=== PATIENT | female | born 1945 | race Caucasian/White ===

== ENCOUNTER 2021-02-22 15:47 | Emergency (ER) | payer MEDICARE, SELFPAY ==
--- NOTE | ~2021-02-22 | CT_ITS ---
EXAMINATION: CT ABDOMEN AND PELVIS WITH CONTRAST CLINICAL INFORMATION: diffuse AP, constipation, r.o sbo COMPARISON: None. TECHNIQUE: Multidetector volumetric imaging was performed from the superior aspect of the liver through the pubic symphysis following administration of 85 mL Omnipaque 350 intravenous contrast Sagittal and coronal reformatted images were obtained on the technologist workstation.. This CT examination was performed using dose optimization techniques as appropriate, variously including the following: *Automated exposure control *Adjustment of mA and/or kV according to patient size (this includes techniques or standardized protocols for targeted exams where dose is matched to indication/reason for exam; i.e. extremities or head) *Use of iterative reconstruction technique DLP: 297 mGy-cm FINDINGS: LUNG BASES: Minimal dependent atelectasis LIVER, GALLBLADDER, AND BILIARY TREE: The liver is normal in size, shape, and attenuation. No focal hepatic lesion or biliary ductal dilatation is present. The gallbladder is unremarkable with no evidence of radiopaque gallstones, gallbladder wall thickening, or obvious pericholecystic inflammatory changes. PANCREAS: Mild prominence to the pancreatic duct in the region the pancreatic head measuring up to 0.6 cm with the more proximal pancreatic duct is unremarkable SPLEEN: Normal size. Small spontaneous spleno renal shunt incidentally noted ADRENAL GLANDS: Unremarkable. KIDNEYS AND URETERS: The right kidney is atrophic. No obstructive changes to the contralateral left kidney with a few small nonobstructed intrarenal calculi and tiny cortical low-attenuation cysts. BLADDER: Decompressed but difficult to evaluate due to metallic artifact from left hip prosthesis GASTROINTESTINAL TRACT: Moderate amount of stool within the rectum. Colon is tortuous with scattered colonic diverticulosis. I do not appreciate any colonic wall thickening or pericolonic inflammatory changes to suggest diverticulitis. Normal-appearing appendix in the right lower quadrant. Visualized small bowel unremarkable ABDOMINAL WALL: No significant hernia is appreciated. LYMPHOVASCULAR STRUCTURES: Extensive vascular calcification within the aorta iliac system PELVIC VISCERA: Uterus is deviated to the left and partially obscured by artifact from left hip prosthesis. Endometrial cavity does appear to be dilated measuring up to 1.1 cm in thickness which is abnormal for patient of this age. Correlation with a nonemergent pelvic ultrasound is recommended to evaluate further. OSSEOUS STRUCTURES: Degenerative changes in the spine. Compression deformities at L2 and T12 of indeterminate age. Left hip prosthesis. CT/CT abdomen pelvis w con IMPRESSION: Moderate amount of stool throughout the colon. No obstructive changes seen otherwise. Scattered diverticulosis but no evidence for diverticulitis. Chronic appearing changes as described above. Although the uterus is deviated to the left and partially obscured by metallic artifact, endometrial stripe does appear to be abnormally thickened measuring up to 1.1 cm. Correlation with a nonemergent pelvic ultrasound would be recommended This critical result was discussed with LAYLA Bella at 02/22/2021 8:30 PM and it was ascertained that the content and urgency of the report was understood at the time of direct communication.
[2021-02-22 15:49] VITALS: BP 147/89; PULSE 61; RESP 18; TEMP 36.7; O2SAT 99; BMI 21.9
[2021-02-22 16:38] LABS: MANUAL DIFF FLAG NO
[2021-02-22 16:41] LABS: Basophils Absolute Auto 0.1 X10*3/uL (0.0-0.2); Basophils Percent Auto 0.9 % (0-2); Eosinophils Absolute Auto 0.5 X10*3/uL (0.0-0.4); Eosinophils Percent Auto 4.8 % (0-4); Hematocrit 47.9 % (37-47); Hemoglobin 16.7 g/dl (12.0-16.0); Imm Gran Abs Auto 0.02 X10*3/uL (0.00-0.03); Imm Gran Pct Auto 0.2 % (0.0-0.4); Lymphocytes Absolute Auto 2.5 X10*3/uL (1.2-4.9); Mean Corpuscular HGB Conc 34.9 g/dl (31.0-35.0); Mean Corpuscular Hemoglobin 29.5 pg (27.0-33.0); Mean Corpuscular Volume 84.6 fL (80-98); Mean Platelet Volume 10.2 fL (9.4-12.3); Monocytes Absolute Auto 1.3 X10*3/uL (0.1-1.2); Monocytes Percent Auto 13.6 % (2-11); Neutrophils Absolute Auto 5.5 X10*3/uL (2.0-8.3); Neutrophils Percent Auto 55.5 % (45-73); Platelet Count 284 X10*3/uL (160-400); Red Blood Count 5.66 X10*6/uL (4.20-5.50); Red Cell Distribution Width 14.6 % (11.0-16.0); White Blood Count 9.9 X10*3/uL (4.8-10.8)
[2021-02-22 16:59] LABS: Blood Urea Nitrogen 26 mg/dL (9-16); Calcium 9.1 mg/dL (8.4-10.2); Carbon Dioxide 26 mmol/L (22-29); Chloride 97 mmol/L (96-108); Creatinine Clr Calc Pharmacy 41.5; Estimated Glomerular Filt Rate 58; Glucose Random 108 mg/dL (60-115)
[2021-02-22 17:10] LABS: Anion Gap 11 (12-20); Potassium 2.3 mmol/L (3.3-5.1); Sodium 132 mmol/L (135-145)
--- NOTE | 2021-02-22 17:23 | ECG_ITS ---
Test Reason : LOW K Blood Pressure : / mmHG Vent. Rate : 058 BPM Atrial Rate : 058 BPM P-R Int : 212 ms QRS Dur : 092 ms QT Int : 486 ms P-R-T Axes : 061 009 090 degrees QTc Int : 477 ms Sinus bradycardia with 1st degree A-V block Left ventricular hypertrophy with repolarization abnormality Abnormal ECG When compared with ECG of 30-SEP-2017 15:50, No significant change was found Referred By: Ana Apodaca Electronically Signed By:CAM WORKMAN
--- NOTE | 2021-02-22 17:42 | ED.ABDPAIN ---
HPI - Abdominal Pain General Chief Complaint: Abdominal Pain Stated Complaint: Abdominal pain Time Seen by Provider: 02/22/21 17:16 Source: family Mode of arrival: ambulatory Limitations: altered mental status (Obtained from family due to dementia) History of Present Illness HPI narrative: 75-year-old female with a past medical history of glaucoma, anxiety, depression, dementia here with complaints of generalized abdominal pain with constipation x3 days. Per family the patient has been severely constipated and may have had to manually disimpact her at home. She has had no nausea or vomiting. No fevers or chills or urinary symptoms. Drinking water and ensure. Related Data Home Medications Medication Instructions Recorded Confirmed acetazolamide 1 cap PO BID 02/22/21 02/22/21 bimatoprost [Lumigan] 1 drp OPHTHALMIC-LEFT BEDTIME 02/22/21 02/22/21 brimonidine-timolol [Combigan] 1 drp BID 02/22/21 02/22/21 dorzolamide 1 drp BID 02/22/21 02/22/21 melatonin 1 cap PO BEDTIME 02/22/21 02/22/21 memantine 1 cap PO DAILY 02/22/21 02/22/21 quetiapine 1 tab PO BEDTIME 02/22/21 02/22/21 Allergies Allergy/AdvReac Type Severity Reaction Status Date / Time No Known Allergies Allergy Unverified 07/06/20 19:06 [No Known Allergies*] Review of Systems Review of Systems Yes Unobtainable due to mental status (Limited due to dementia. Obtained from family) Constitutional: Reports no additional constitutional complaints, Denies body ache(s), Denies chills, Denies fever(s), Denies headache(s) and Denies weakness Eyes: Reports no additional eye complaints and Denies change in vision Reports system reviewed and no additional complaints, except as documented, Denies dizziness, Denies headache(s), Denies nasal congestion, Denies nasal discharge and Denies neck pain Cardiovascular: Reports no additional cardiovascular complaints, Denies chest pain, Denies leg edema and Denies dyspnea Respiratory: Reports no additional respiratory complaints, Denies cough and Denies dyspnea Gastrointestinal: Reports no additional gastrointestinal complaints, Reports abdominal pain, Reports constipation, Denies diarrhea, Denies nausea and Denies vomiting Genitourinary: Reports no additional female genitourinary complaints and Denies urinary incontinence Musculoskeletal: Reports no additional musculoskeletal complaints, Denies back pain, Denies arthralgias, Denies joint swelling, Denies neck pain, Denies numbness and Denies tingling Skin/Breast: Reports system reviewed and no additional complaints, except as docu and Denies rash Reports system reviewed and no additional complaints, except as documented, Denies Abnormal speech present, Reports confusion, Denies dizziness, Denies headache(s), Denies numbness, Denies tingling and Denies weakness Psychiatric: Reports confusion Physical Exam Vital Signs: Vital Signs: Last Vital Signs Temp 98.0 F 02/22/21 15:49 Pulse 65 02/22/21 19:58 Resp 12 02/22/21 19:58 BP 136/84 02/22/21 19:58 Pulse Ox 93 02/22/21 19:58 Body Mass Index 21.9 Const: General: cooperative, healthy appearing, comfortable, no acute distress and confusion Orientation/consciousness: confusion Limitations: no limitations HENMT: Head: Yes normal to inspection Ears: hearing grossly normal bilaterally General nose exam: Normal external nose present Face and sinus: Yes normal facial exam Mouth: Normal oral and palatal mucosa present Throat: Yes posterior oropharynx normal Eyes: General: appearance normal, both eyes and all related structures Neck: Neck: Yes normal visual inspection Chest: Chest palpation & inspection: normal inspection of the chest Resp: Effort & Inspection: normal respiratory effort Auscultation: clear to auscultation bilaterally Cardio: Rate: regular rate Rhythm: regular rhythm Peripheral pulses: Peripheral pulses 2+ throughout GI: Inspection: Yes normal to inspection Palpation (GI): Soft to palpation, Tenderness to palpation present (GI) (Mild diffuse tenderness) with no rebound tenderness, no guarding and not rigid Auscultation: normal bowel sounds Back/Spine/Pelvis: Thoracic/Lumbar Spine: thoracic and lumbar spine normal to inspection Skin: General skin exam: no rashes or lesions noted Neuro: General: moves all extremities, normal sensation to monofilament, confusion and Unable to assess gait Cognition (Neuro): abnormal cognition Speech: No Abnormal speech present Gait exam (Neuro): Unable to assess gait Extrem: General: Yes normal to inspection, Yes no pedal edema and Yes no calf tenderness Course Course Course Narrative: 75-year-old female here with generalized abdominal pain with constipation for the last few days. History and exam is limited due to baseline mental status. Will check labs, UA, CT, EKG, covid screen 1829-labs show potassium 2.3. Family denies GI losses. ?acetazolamide as cause. Ordered 60 PO, 20meQ IV. 2039-CT A/P shows Moderate amount of stool throughout the colon. No obstructive changes seen otherwise. Scattered diverticulosis but no evidence for diverticulitis. Chronic appearing changes as described above. Although the uterus is deviated to the left and partially obscured by metallic artifact, endometrial stripe does appear to be abnormally thickened measuring up to 1.1 cm. Correlation with a nonemergent pelvic ultrasound would be recommended Discussed with radiologist who recommended non-emergent pelvic US. Family was informed. Nursing to give enema for stool burden. Labs unremarkable. UA is negative. Call at to Medicine to discuss for admission for hypokalemia. 2100-Discussed with Dr tSack for admission. Requesting repeat K and if improved possible discharge. Sign out to Rosalia CUSTOMER DEVELOPMENT MANAGER pending POC. MDM - Abdominal Pain Medical Records Attestation: I reviewed the patient's medical records. Lab Data Attestation: I reviewed the patient's lab results. Result diagrams: 02/22/21 16:30 02/22/21 16:24 Labs: Lab Results 02/22/21 02/22/21 02/22/21 Range/Units 16:24 16:24 16:30 WBC 9.9 (4.8-10.8) X10*3/uL RBC 5.66 H (4.20-5.50) X10*6/uL Hgb 16.7 H (12.0-16.0) g/dl Hct 47.9 H (37-47) % MCV 84.6 (80-98) fL MCH 29.5 (27.0-33.0) pg MCHC 34.9 (31.0-35.0) g/dl RDW 14.6 (11.0-16.0) % Plt Count 284 (160-400) X10*3/uL MPV 10.2 (9.4-12.3) fL Immature Gran % (Auto) 0.2 (0.0-0.4) % Neut % (Auto) 55.5 (45-73) % Lymph % (Auto) 25.0 (20-40) % [place] % (Auto) 13.6 H (2-11) % Eos % (Auto) 4.8 H (0-4) % Baso % (Auto) 0.9 (0-2) % Lymph # (Auto) 2.5 (1.2-4.9) X10*3/uL [place] # (Auto) 1.3 H (0.1-1.2) X10*3/uL Eos # (Auto) 0.5 H (0.0-0.4) X10*3/uL Baso # (Auto) 0.1 (0.0-0.2) X10*3/uL Abs Immat Gran (auto) 0.02 (0.00-0.03) X10*3/uL Absolute Neuts (auto) 5.5 (2.0-8.3) X10*3/uL Absolute Nucleated RBC 0.000 (0.0-0.012) X10*3/uL Nucleated RBC % (auto) 0.0 (0.0-0.2) /100WBC Hold Blue Top Sodium 132 L (135-145) mmol/L Potassium 2.3 L* (3.3-5.1) mmol/L Chloride 97 (96-108) mmol/L Carbon Dioxide 26 (22-29) mmol/L Anion Gap 11 L (12-20) BUN 26 H (9-16) mg/dL Creatinine 0.94 (0.5-1.4) mg/dL Estim Creat Clear Calc 41.5 Estimated GFR 58 Random Glucose 108 (60-115) mg/dL Calcium 9.1 (8.4-10.2) mg/dL Magnesium 2.2 (1.6-2.6) mg/dL Total Bilirubin 0.9 (0.0-1.0) mg/dL Direct Bilirubin 0.4 (0.0-0.5) mg/dL AST 22 (5-31) U/L ALT 16 (0-31) U/L Alkaline Phosphatase 81 (39-117) U/L Total Protein 7.2 (6.5-8.0) g/dL Albumin 4.2 (3.5-5.0) g/dL Urine Color Urine Appearance Urine pH (5.0-8.0) Ur Specific [place] (1.005-1.025) Urine Protein (NEG-TRACE) MG/DL Urine Glucose (UA) (NEG) MG/DL Urine Ketones (NEG) MG/DL Urine Blood (NEG) Urine Nitrite (NEG) Ur Leukocyte Esterase (NEG) COVID-19 (DWIGHT) (Negative) COVID-19 Clin Com 02/22/21 02/22/21 02/22/21 Range/Units 17:54 17:54 18:13 WBC (4.8-10.8) X10*3/uL RBC (4.20-5.50) X10*6/uL Hgb (12.0-16.0) g/dl Hct (37-47) % MCV (80-98) fL MCH (27.0-33.0) pg MCHC (31.0-35.0) g/dl RDW (11.0-16.0) % Plt Count (160-400) X10*3/uL MPV (9.4-12.3) fL Immature Gran % (Auto) (0.0-0.4) % Neut % (Auto) (45-73) % Lymph % (Auto) (20-40) % [place] % (Auto) (2-11) % Eos % (Auto) (0-4) % Baso % (Auto) (0-2) % Lymph # (Auto) (1.2-4.9) X10*3/uL [place] # (Auto) (0.1-1.2) X10*3/uL Eos # (Auto) (0.0-0.4) X10*3/uL Baso # (Auto) (0.0-0.2) X10*3/uL Abs Immat Gran (auto) (0.00-0.03) X10*3/uL Absolute Neuts (auto) (2.0-8.3) X10*3/uL Absolute Nucleated RBC (0.0-0.012) X10*3/uL Nucleated RBC % (auto) (0.0-0.2) /100WBC Hold Blue Top SEE NOTE Sodium (135-145) mmol/L Potassium (3.3-5.1) mmol/L Chloride (96-108) mmol/L Carbon Dioxide (22-29) mmol/L Anion Gap (12-20) BUN (9-16) mg/dL Creatinine (0.5-1.4) mg/dL Estim Creat Clear Calc Estimated GFR Random Glucose (60-115) mg/dL Calcium (8.4-10.2) mg/dL Magnesium (1.6-2.6) mg/dL Total Bilirubin (0.0-1.0) mg/dL Direct Bilirubin (0.0-0.5) mg/dL AST (5-31) U/L ALT (0-31) U/L Alkaline Phosphatase (39-117) U/L Total Protein (6.5-8.0) g/dL Albumin (3.5-5.0) g/dL Urine Color YELLOW Urine Appearance CLEAR Urine pH 6.5 (5.0-8.0) Ur Specific [place] 1.010 (1.005-1.025) Urine Protein NEG (NEG-TRACE) MG/DL Urine Glucose (UA) NEG (NEG) MG/DL Urine Ketones NEG (NEG) MG/DL Urine Blood NEG (NEG) Urine Nitrite NEG (NEG) Ur Leukocyte Esterase NEG (NEG) COVID-19 (DWIGHT) Negative (Negative) COVID-19 Clin Com See Note Imaging Data CT scan - abdomen: Attestation: I personally reviewed and interpreted this imaging study as follows: Radiologist's impression: Moderate amount of stool throughout the colon. No obstructive changes seen otherwise. Scattered diverticulosis but no evidence for diverticulitis. Chronic appearing changes as described above. Although the uterus is deviated to the left and partially obscured by metallic artifact, endometrial stripe does appear to be abnormally thickened measuring up to 1.1 cm. Correlation with a nonemergent pelvic ultrasound would be recommended ECG Data Attestation: I personally reviewed and interpreted this ECG as follows: ECG interpretation date: 02/22/21 ECG interpretation time: 17:32 Interpretation: Sinus bradycardia with a rate of 58 with first-degree AV block. Prolonged ID, normal QRS, QTC [id number] Discharge Plan Discharge Clinical Impression: Constipation, Acute hypokalemia Prescriptions: No Action acetazolamide 500 mg capsule, extended release 1 cap PO BID RF: 0 melatonin 10 mg capsule 1 cap PO BEDTIME RF: 0 memantine 7 mg capsule,sprinkle,ER 24hr 1 cap PO DAILY RF: 0 quetiapine 25 mg tablet 1 tab PO BEDTIME RF: 0 dorzolamide 2 % drops 1 drp BID RF: 0 Combigan 0.2-0.5 % drops 1 drp BID RF: 0 Lumigan 0.01 % drops 1 drp ophthalmic-Left BEDTIME RF: 0 PMFSH Past Medical History Attestation statement: The following information was validated with the patient. Source: old records reviewed and obtained from family Medical History (Updated 02/22/21 @ 21:04 by Ana Apodaca NP) Anxiety Dementia Depression Glaucoma Social History Social History Advance Directives: No Advance Directives Information Provided: No
[2021-02-22 17:50] VITALS: RESP 18
[2021-02-22] MEDS: fentaNYL citrate/PF 100 MCG/2 ML VIAL 25 MCG IVPUSH (17:50)
[2021-02-22 17:52] LABS: Alanine Aminotransferase 16 U/L (0-31); Albumin Level 4.2 g/dL (3.5-5.0); Alkaline Phosphatase 81 U/L (39-117); Aspartate Amino Transferase 22 U/L (5-31); Bilirubin Direct 0.4 mg/dL (0.0-0.5); Bilirubin Total 0.9 mg/dL (0.0-1.0); Magnesium 2.2 mg/dL (1.6-2.6); Total Protein 7.2 g/dL (6.5-8.0)
[2021-02-22 18:05] LABS: Glucose Urine UA NEG (NEG); Leukocyte Esterase Urine NEG (NEG); Nitrite Urine NEG (NEG); PH 6.5 (5.0-8.0); Urine Blood NEG (NEG); Urine Ketones NEG (NEG); Urine Protein NEG (NEG-TRACE)
[2021-02-22 18:08] LABS: Color Urine YELLOW
[2021-02-22 18:09] LABS: Appearance Urine CLEAR
[2021-02-22 18:15] VITALS: BP 156/93; PULSE 61; RESP 12; O2SAT 94
[2021-02-22] MEDS: Potassium Chloride Packet 20 MEQ PACKET 60 MEQ PO (18:18)
[2021-02-22] MEDS: ondansetron HCL 4 MG/2 ML VIAL IVPUSH (18:18)
[2021-02-22] MEDS: Potassium Chloride/H20 10 MEQ/100 ML PIGGYBACK 100 MEQ IV ×2 (18:18→19:43)
[2021-02-22 18:25] LABS: COVID-19 Test Negative (Negative)
[2021-02-22 19:26] VITALS: BP 134/93; PULSE 65; RESP 16
[2021-02-22] MEDS: iohexoL 350 MG/ML 100 ML INFUS..BTL IV (19:39)
[2021-02-22 19:58] VITALS: BP 136/84; PULSE 65; RESP 12; O2SAT 93
[2021-02-22] MEDS: Sodium Phosphate,Mono-Dibasic 133 ML ENEMA PR (20:56)
[2021-02-22 22:18] LABS: Anion Gap 14 (12-20); Blood Urea Nitrogen 22 mg/dL (9-16); Calcium 8.9 mg/dL (8.4-10.2); Carbon Dioxide 22 mmol/L (22-29); Chloride 101 mmol/L (96-108); Creatinine Clr Calc Pharmacy 41.9; Estimated Glomerular Filt Rate 59; Glucose Random 141 mg/dL (60-115); Potassium 3.3 mmol/L (3.3-5.1); Sodium 134 mmol/L (135-145)
== END 2021-02-23 00:13 | disposition home or self-care (01) ==
PROVIDERS: Nurse Practitioner Family; Emergency Provider Emergency Medicine; PCP Internal Medicine
DX: K59.00 Constipation, unspecified (principal); E87.6 Hypokalemia; R10.84 Generalized abdominal pain; R00.1 Bradycardia, unspecified; Z20.822 Contact with and (suspected) exposure to COVID-19; F03.90 Unspecified dementia, unspecified severity, without behavioral disturbance, psychotic disturbance, mood disturbance, and anxiety
CPT/HCPCS: 36415; 74177; 80048; 80076; 81003; 83735; 85025; 87635; 93005; 96365; 96366; 96375; 99285; J2405; J3010; Q9967

== ENCOUNTER 2021-10-14 11:24 | Emergency (ER) | payer MEDICARE, SELFPAY ==
--- NOTE | ~2021-10-14 | CT_ITS ---
EXAMINATION: CT CHEST, ABDOMEN AND PELVIS WITHOUT CONTRAST CLINICAL INFORMATION: R sided chest and abdominal pain - dementia cannot get good history COMPARISON: CT scan abdomen pelvis 02/22/2021. Chest x-ray 09/30/2017 TECHNIQUE: Multidetector volumetric CT imaging of the chest, abdomen and pelvis was obtained without oral or intravenous contrast. Coronal and sagittal reformatted images are performed at CT scanner [This CT examination was performed using dose optimization techniques as appropriate, variously including the following: *Automated exposure control *Adjustment of mA and/or kV according to patient size (this includes techniques or standardized protocols for targeted exams where dose is matched to indication/reason for exam; i.e. extremities or head) *Use of iterative reconstruction technique] DLP: 433 mGy-cm. FINDINGS: CT CHEST: Lungs: Marked emphysematous change of lungs. There is an irregular nodule at the right lung apex measuring 1.3 x 1 x 1 cm. 2 mm calcified granuloma right middle lobe. Mediastinum: No mediastinal mass or significant lymphadenopathy. The heart size is normal. No pericardial effusion. There are coronary artery calcifications. There are calcifications of aorta. There is no aneurysm of aorta. Pleura: There is no pleural effusion. No pleural mass or thickening. Axilla: No lymphadenopathy. CT ABDOMEN AND PELVIS: Liver, Gallbladder and Biliary Tree: The liver is normal in size, shape, and attenuation. No focal hepatic lesion or biliary ductal dilatation is present. Gallbladder partially filled. Chronic dilatation of the distal CBD. No calcified stone evident. Pancreas: Stable dilatation of the pancreatic duct at the head of the pancreas. No pancreatic mass or inflammation. Spleen: Spleen normal in size and contour. No focal lesion. Adrenal Glands: Adrenal glands are normal in size. No focal mass. Kidneys and Ureters: Atrophic right kidney. 1 mm nonobstructive stone at the midpole left kidney. Small calcifications at the renal randolph likely vascular. No ureteral calculus. No hydronephrosis. Bladder: Unremarkable. Gastrointestinal Tract: No acute abnormality of the abdomen. There is no bowel wall thickening /edema. There is no bowel obstruction. There is a moderate volume of stool in the colon. The appendix is normal . The small bowel loops are unremarkable. The stomach is normal. There is no hiatal hernia. Mesentery: No focal inflammation. No free fluid. No free air. Abdominal Wall: No significant hernia is appreciated. Lymph Nodes: Normal. Vascular: Unremarkable. Pelvic Viscera: Uterus is anteverted. No adnexal abnormality. Osseous Structures: Stable chronic compression deformity superior endplate of T12 and L2 unchanged since 02/22/2021. Status post left hip prosthesis. No acute osseous abnormality. CT/CT abdomen pelvis wo con IMPRESSION: 1. CT chest. Emphysematous changes of lung. Irregular nodule in the right lung apex measuring 1.3 x 1 x 1 cm. This is suspicious. Various management parameters for solitary pulmonary nodules are in the literature. According to the UPDATED 2017 Fleischner Society recommendations, the advised follow-up imaging for a single solid nodule measuring 8 mm or greater is: Consider CT, PET/CT, or tissue sampling. Reference: Guidelines for Management of Incidental Pulmonary Nodules Detected on CT Images: From the Fleischner Society 2017. 2. No acute abnormality the abdomen or the pelvis. Atrophic right kidney. Normal appendix. Chronic dilatation of the CBD and pancreatic duct without evidence of edema around pancreas or right upper quadrant.
--- NOTE | ~2021-10-14 | XR_ITS ---
EXAMINATION: XR HIP, RIGHT CLINICAL INFORMATION: Pain. COMPARISON: None TECHNIQUE: AP pelvis, repeat AP pelvis, lateral and AP radiographs of the right hip. FINDINGS: The visualized right femur appears intact. Diffuse osteopenia is noted. Posterior wall of the right acetabulum is intact. Mild superior joint space narrowing and superior acetabular subchondral sclerosis noted. Mild scattered vascular calcifications. AP views of the hip demonstrate partial visualization of a total left hip arthroplasty. The visualized sacrum is normal in appearance. L4-L5 and L5-S1 facet hypertrophic changes are partially visualized. XR/XR hip RT min 2V IMPRESSION: Pelvis and right hip radiographs; *No acute abnormalities identified. *Diffuse osteopenia. *Mild osteoarthritis of the right hip. *Partially visualized left hip arthroplasty.
[2021-10-14 11:34] VITALS: BP 136/79; BP 139/73; PULSE 72; PULSE 82; RESP 20; TEMP 37; O2SAT 98; O2SAT 99; BMI 16.1
--- NOTE | 2021-10-14 11:35 | ECG_ITS ---
Test Reason : ABDOMINAL PAIN Blood Pressure : / mmHG Vent. Rate : 072 BPM Atrial Rate : 072 BPM P-R Int : 184 ms QRS Dur : 088 ms QT Int : 402 ms P-R-T Axes : 073 018 073 degrees QTc Int : 440 ms Sinus rhythm with occasional Premature ventricular complexes Minimal voltage criteria for LVH, may be normal variant ( Sokolow-Caceres ) Borderline ECG When compared with ECG of 22-FEB-2021 17:32, Premature ventricular complexes are now Present Referred By: Merry Edwards Electronically Signed By:Christian Parnell
--- NOTE | 2021-10-14 11:42 | ED_ITS ---
HPI - General Adult General Chief complaint: General Medical Stated complaint: r rib injury Time Seen by Provider: 10/14/21 11:29 Source: family Mode of arrival: EMS Limitations: altered mental status (dementia) History of Present Illness HPI narrative: c/o pain to that area, daughter denies any trauma, eating okay, no other caregivers no trauma MD complaint: ? pain on R side of body Onset (ago): day(s) (yesterday ) Location: chest, abdomen, right and lower extremity Radiation: non-radiation Severity: moderate Pain Consistency: constant Relieving factors: none Exacerbating factors: movement and other (palpation) Associated symptoms: denies other symptoms Treatments prior to arrival: none Related Data Home Medications Medication Instructions Recorded Confirmed acetazolamide 500 mg 1 cap PO BID 02/22/21 02/22/21 capsule,extended release bimatoprost 0.01 % eye drops 1 drp OPHTHALMIC-LEFT BEDTIME 02/22/21 02/22/21 (Lumigan) brimonidine 0.2 %-timolol 0.5 % 1 drp BID 02/22/21 02/22/21 eye drops (Combigan) dorzolamide 2 % eye drops 1 drp BID 02/22/21 02/22/21 melatonin 10 mg capsule 1 cap PO BEDTIME 02/22/21 02/22/21 memantine 7 mg capsule 1 cap PO DAILY 02/22/21 02/22/21 sprinkle,extended release 24hr quetiapine 25 mg tablet 1 tab PO BEDTIME 02/22/21 02/22/21 Previous Rx's Medication Instructions Recorded potassium chloride 20 mEq 40 meq PO ONCE #2 tab 02/22/21 tablet,extended release(part/cryst) (Klor-Con M) Allergies Allergy/AdvReac Type Severity Reaction Status Date / Time No Known Allergies Allergy Unverified 07/06/20 19:06 [No Known Allergies*] Review of Systems Review of Systems: ROS unable to be obtained due to altered mental status PMFSH Past Medical History Attestation statement: The following information was validated with the patient. Medical History Anxiety Dementia Depression Glaucoma Social History Social History (Updated 10/14/21 @ 11:50 by Merry Edwards DO) Alcohol intake: unknown Patient Tobacco Use Status: Tobacco use Unknown Use of substances other than those prescribed or required for medical reasons: Unknown Advance Directives: No Advance Directives Information Provided: Yes Physical Exam Vital Signs: Vital Signs: Last Vital Signs Temp 98.6 F 10/14/21 11:34 Pulse 72 10/14/21 11:34 Resp 20 10/14/21 11:34 BP 139/73 10/14/21 11:34 Pulse Ox 99 10/14/21 11:34 BMI result Body Mass Index 16.1 Appearance: Alert. Confused at baseline per daughter. Appears uncomfortable No acute distress. Eyes: Pupils equal, round and reactive to light. ENT: Pharynx mild dry MM Neck: Normal inspection. Neck supple. CVS: Normal heart rate and rhythm. Pulses normal. Chest: ttp along R ribs Respiratory: No respiratory distress. Breath sounds normal. Abdomen: appears distended, diffuse ttp no mass felt Skin: Skin warm and dry. Normal skin color. Extremities: No lower extremity edema. R hip reports ttp - cannot ROM without severe pain, leg is shortened Neuro: Confused. No motor deficit. No sensory deficit. Course Course Course Narrative: signed out to LAYLA Shearer Medical Decision Making [facility] Narrative Medical decision making narrative: 76 yo female with hx of dementia L hip surgery for fracture per daughter here with c/o R sided body pain she is very di fficult to get a history from at this time will need labs, CT scan of abdomen/chest for infection/obstruction/trauma, xray of R hip. Given her degree of comfort IV morphine ordered. Dispo per results and findings. Lab Data Result diagrams: 10/14/21 13:26 10/14/21 13:42 Labs: Lab Results 10/14/21 10/14/21 10/14/21 Range/Units 11:57 13:26 13:26 WBC 11.1 H (4.8-10.8) X10*3/uL RBC 4.91 (4.20-5.50) X10*6/uL Hgb 14.2 (12.0-16.0) g/dl Hct 43.7 (37.0-47.0) % MCV 89.0 (80.0-98.0) fL MCH 28.9 (27.0-33.0) pg MCHC 32.5 (31.0-35.0) g/dl RDW 14.5 (11.0-16.0) % Plt Count 214 (160-400) X10*3/uL MPV 9.6 (9.4-12.3) fL Immature Gran % (Auto) 0.4 (0.0-0.4) % Neut % (Auto) 82.3 H (45-73) % Lymph % (Auto) 8.8 L (20-40) % [place] % (Auto) 7.7 (2-11) % Eos % (Auto) 0.6 (0-4) % Baso % (Auto) 0.2 (0-2) % Lymph # (Auto) 1.0 L (1.2-4.9) X10*3/uL [place] # (Auto) 0.9 (0.1-1.2) X10*3/uL Eos # (Auto) 0.1 (0.0-0.4) X10*3/uL Baso # (Auto) 0.0 (0.0-0.2) X10*3/uL Abs Immat Gran (auto) 0.04 H (0.00-0.03) X10*3/uL Absolute Neuts (auto) 9.1 H (2.0-8.3) x10*3/uL Absolute Nucleated RBC 0.000 (0.0-0.012) X10*3/uL Nucleated RBC % (auto) 0.0 (0.0-0.2) /100WBC Sodium (135-145) mmol/L Potassium (3.3-5.1) mmol/L Chloride (96-108) mmol/L Carbon Dioxide (22-29) mmol/L Anion Gap (12-20) BUN (9-16) mg/dL Creatinine (0.5-1.4) mg/dL Estim Creat Clear Calc Estimated GFR Random Glucose (60-115) mg/dL Lactic Acid 0.8 (0.5-2.0) mmol/L Calcium (8.4-10.2) mg/dL Magnesium (1.6-2.6) mg/dL Total Bilirubin (0.0-1.0) mg/dL Direct Bilirubin (0.0-0.5) mg/dL AST (5-31) U/L ALT (0-31) U/L Alkaline Phosphatase (39-117) U/L Troponin I High Sens (<3.5-17.0) ng/L Total Protein (6.5-8.0) g/dL Albumin (3.5-5.0) g/dL Lipase (8-78) U/L COVID-19 (DWIGHT) Negative (Negative) COVID-19 Clin Com See Note 10/14/21 10/14/21 Range/Units 13:42 13:42 WBC (4.8-10.8) X10*3/uL RBC (4.20-5.50) X10*6/uL Hgb (12.0-16.0) g/dl Hct (37.0-47.0) % MCV (80.0-98.0) fL MCH (27.0-33.0) pg MCHC (31.0-35.0) g/dl RDW (11.0-16.0) % Plt Count (160-400) X10*3/uL MPV (9.4-12.3) fL Immature Gran % (Auto) (0.0-0.4) % Neut % (Auto) (45-73) % Lymph % (Auto) (20-40) % [place] % (Auto) (2-11) % Eos % (Auto) (0-4) % Baso % (Auto) (0-2) % Lymph # (Auto) (1.2-4.9) X10*3/uL [place] # (Auto) (0.1-1.2) X10*3/uL Eos # (Auto) (0.0-0.4) X10*3/uL Baso # (Auto) (0.0-0.2) X10*3/uL Abs Immat Gran (auto) (0.00-0.03) X10*3/uL Absolute Neuts (auto) (2.0-8.3) x10*3/uL Absolute Nucleated RBC (0.0-0.012) X10*3/uL Nucleated RBC % (auto) (0.0-0.2) /100WBC Sodium 138 (135-145) mmol/L Potassium 4.2 D (3.3-5.1) mmol/L Chloride 101 (96-108) mmol/L Carbon Dioxide 30 H (22-29) mmol/L Anion Gap 11 L (12-20) BUN 12 (9-16) mg/dL Creatinine 0.76 (0.5-1.4) mg/dL Estim Creat Clear Calc 40.4 Estimated GFR > 60 Random Glucose 104 (60-115) mg/dL Lactic Acid (0.5-2.0) mmol/L Calcium 9.3 (8.4-10.2) mg/dL Magnesium 1.8 (1.6-2.6) mg/dL Total Bilirubin 0.5 (0.0-1.0) mg/dL Direct Bilirubin 0.3 (0.0-0.5) mg/dL AST 21 (5-31) U/L ALT 22 (0-31) U/L Alkaline Phosphatase 91 (39-117) U/L Troponin I High Sens 12.8 (<3.5-17.0) ng/L Total Protein 7.1 (6.5-8.0) g/dL Albumin 4.1 (3.5-5.0) g/dL Lipase 37 (8-78) U/L COVID-19 (DWIHGT) (Negative) COVID-19 Clin Com ECG Data Attestation: I personally reviewed and interpreted this ECG as follows: Interpretation: Rate: 72 Rhythm: NSR with PVCs [place]: normal , LVH Normal P waves. Normal ODALIS. Normal QRS complex. ST T wave : nonspecific, no ASHLY qTC: normal prior studies: no acute ischemia The study has been interpreted contemporaneously by me. . Discharge Plan Discharge Clinical Impression: Abdominal pain Qualifiers: Abdominal location: right upper quadrant Qualified Code(s): R10.11 - Right u pper quadrant pain Prescriptions: No Action acetazolamide 500 mg capsule, extended release 1 cap PO BID RF: 0 melatonin 10 mg capsule 1 cap PO BEDTIME RF: 0 memantine 7 mg capsule,sprinkle,ER 24hr 1 cap PO DAILY RF: 0 quetiapine 25 mg tablet 1 tab PO BEDTIME RF: 0 dorzolamide 2 % drops 1 drp BID RF: 0 Combigan 0.2-0.5 % drops 1 drp BID RF: 0 Lumigan 0.01 % drops 1 drp ophthalmic-Left BEDTIME RF: 0 potassium chloride [Klor-Con M20] 20 mEq tablet,ER particles/crystals 40 meq PO ONCE Qty: 2 RF: 0
[2021-10-14] MEDS: Morphine Sulfate 4 MG/ML CARTRIDGE 2 MG IVPUSH (12:03)
[2021-10-14] MEDS: 0.9 % Sodium Chloride 500 ML IV (12:04)
[2021-10-14] MEDS: ondansetron HCL 4 MG/2 ML VIAL IVPUSH (12:04)
[2021-10-14 12:26] LABS: COVID-19 Test Negative (Negative)
[2021-10-14 13:30] LABS: MANUAL DIFF FLAG NO
[2021-10-14 13:32] LABS: Basophils Percent Auto 0.2 % (0-2); Eosinophils Absolute Auto 0.1 X10*3/uL (0.0-0.4); Eosinophils Percent Auto 0.6 % (0-4); Hematocrit 43.7 % (37.0-47.0); Hemoglobin 14.2 g/dl (12.0-16.0); Imm Gran Abs Auto 0.04 X10*3/uL (0.00-0.03); Imm Gran Pct Auto 0.4 % (0.0-0.4); Lymphocytes Percent Auto 8.8 % (20-40); Mean Corpuscular HGB Conc 32.5 g/dl (31.0-35.0); Mean Corpuscular Hemoglobin 28.9 pg (27.0-33.0); Mean Platelet Volume 9.6 fL (9.4-12.3); Monocytes Absolute Auto 0.9 X10*3/uL (0.1-1.2); Monocytes Percent Auto 7.7 % (2-11); Neutrophils Absolute Auto 9.1 x10*3/uL (2.0-8.3); Neutrophils Percent Auto 82.3 % (45-73); Platelet Count 214 X10*3/uL (160-400); Red Blood Count 4.91 X10*6/uL (4.20-5.50); Red Cell Distribution Width 14.5 % (11.0-16.0); White Blood Count 11.1 X10*3/uL (4.8-10.8)
[2021-10-14 13:45] LABS: Lactic Acid 0.8 mmol/L (0.5-2.0)
[2021-10-14 14:17] LABS: Alanine Aminotransferase 22 U/L (0-31); Albumin Level 4.1 g/dL (3.5-5.0); Alkaline Phosphatase 91 U/L (39-117); Anion Gap 11 (12-20); Aspartate Amino Transferase 21 U/L (5-31); Bilirubin Direct 0.3 mg/dL (0.0-0.5); Bilirubin Total 0.5 mg/dL (0.0-1.0); Blood Urea Nitrogen 12 mg/dL (9-16); Calcium 9.3 mg/dL (8.4-10.2); Carbon Dioxide 30 mmol/L (22-29); Chloride 101 mmol/L (96-108); Creatinine Clr Calc Pharmacy 40.4; Estimated Glomerular Filt Rate > 60; Glucose Random 104 mg/dL (60-115); Lipase 37 U/L (8-78); Magnesium 1.8 mg/dL (1.6-2.6); Potassium 4.2 mmol/L (3.3-5.1); Sodium 138 mmol/L (135-145); Total Protein 7.1 g/dL (6.5-8.0)
[2021-10-14 14:21] LABS: Troponin-I High Sensitivity 12.8 ng/L (<3.5-17.0)
--- NOTE | 2021-10-14 15:38 | PC.NURSE ---
iv infiltrated in ct, removed by this rn. order changed for dry ct by provider.
--- NOTE | 2021-10-14 15:40 | ED.GENADULT ---
HPI - General Adult General Chief complaint: General Medical Stated complaint: r rib injury Time Seen by Provider: 10/14/21 11:29 Source: family Mode of arrival: EMS Limitations: altered mental status (dementia) History of Present Illness Location: chest, abdomen, right and lower extremity Relieving factors: none Exacerbating factors: movement and other (palpation) Associated symptoms: denies other symptoms Treatments prior to arrival: none Related Data Home Medications Medication Instructions Recorded Confirmed acetazolamide 500 mg 1 cap PO BID 02/22/21 02/22/21 capsule,extended release bimatoprost 0.01 % eye drops 1 drp OPHTHALMIC-LEFT BEDTIME 02/22/21 02/22/21 (Lumigan) brimonidine 0.2 %-timolol 0.5 % 1 drp BID 02/22/21 02/22/21 eye drops (Combigan) dorzolamide 2 % eye drops 1 drp BID 02/22/21 02/22/21 melatonin 10 mg capsule 1 cap PO BEDTIME 02/22/21 02/22/21 memantine 7 mg capsule 1 cap PO DAILY 02/22/21 02/22/21 sprinkle,extended release 24hr quetiapine 25 mg tablet 1 tab PO BEDTIME 02/22/21 02/22/21 Previous Rx's Medication Instructions Recorded potassium chloride 20 mEq 40 meq PO ONCE #2 tab 02/22/21 tablet,extended release(part/cryst) (Klor-Con M) Allergies Allergy/AdvReac Type Severity Reaction Status Date / Time No Known Allergies Allergy Unverified 07/06/20 19:06 [No Known Allergies*] [facility] Past Medical History Medical History Anxiety Dementia Depression Glaucoma Social History Social History (Updated 10/14/21 @ 11:50 by Merry Edwards DO) Alcohol intake: unknown Patient Tobacco Use Status: Tobacco use Unknown Use of substances other than those prescribed or required for medical reasons: Unknown Advance Directives: No Advance Directives Information Provided: Yes Physical Exam Vital Signs: Vital Signs: Last Vital Signs Temp 98.6 F 10/14/21 16:39 Pulse 69 10/14/21 16:39 Resp 11 L 10/14/21 16:39 BP 127/75 10/14/21 16:39 Pulse Ox 95 10/14/21 16:39 BMI result Body Mass Index 16.1 Medical Decision Making Lab Data Result diagrams: 10/14/21 13:26 10/14/21 13:42 Labs: Lab Results 10/14/21 10/14/21 10/14/21 Range/Units 11:57 13:26 13:26 WBC 11.1 H (4.8-10.8) X10*3/uL RBC 4.91 (4.20-5.50) X10*6/uL Hgb 14.2 (12.0-16.0) g/dl Hct 43.7 (37.0-47.0) % MCV 89.0 (80.0-98.0) fL MCH 28.9 (27.0-33.0) pg MCHC 32.5 (31.0-35.0) g/dl RDW 14.5 (11.0-16.0) % Plt Count 214 (160-400) X10*3/uL MPV 9.6 (9.4-12.3) fL Immature Gran % (Auto) 0.4 (0.0-0.4) % Neut % (Auto) 82.3 H (45-73) % Lymph % (Auto) 8.8 L (20-40) % Callahan % (Auto) 7.7 (2-11) % Eos % (Auto) 0.6 (0-4) % Baso % (Auto) 0.2 (0-2) % Lymph # (Auto) 1.0 L (1.2-4.9) X10*3/uL Callahan # (Auto) 0.9 (0.1-1.2) X10*3/uL Eos # (Auto) 0.1 (0.0-0.4) X10*3/uL Baso # (Auto) 0.0 (0.0-0.2) X10*3/uL Abs Immat Gran (auto) 0.04 H (0.00-0.03) X10*3/uL Absolute Neuts (auto) 9.1 H (2.0-8.3) x10*3/uL Absolute Nucleated RBC 0.000 (0.0-0.012) X10*3/uL Nucleated RBC % (auto) 0.0 (0.0-0.2) /100WBC Sodium (135-145) mmol/L Potassium (3.3-5.1) mmol/L Chloride (96-108) mmol/L Carbon Dioxide (22-29) mmol/L Anion Gap (12-20) BUN (9-16) mg/dL Creatinine (0.5-1.4) mg/dL Estim Creat Clear Calc Estimated GFR Random Glucose (60-115) mg/dL Lactic Acid 0.8 (0.5-2.0) mmol/L Calcium (8.4-10.2) mg/dL Magnesium (1.6-2.6) mg/dL Total Bilirubin (0.0-1.0) mg/dL Direct Bilirubin (0.0-0.5) mg/dL AST (5-31) U/L ALT (0-31) U/L Alkaline Phosphatase (39-117) U/L Troponin I High Sens (<3.5-17.0) ng/L Total Protein (6.5-8.0) g/dL Albumin (3.5-5.0) g/dL Lipase (8-78) U/L Urine Color Urine Appearance Urine pH (5.0-8.0) Ur Specific [place] (1.005-1.025) Urine Protein (NEG-TRACE) MG/DL Urine Glucose (UA) (NEG) MG/DL Urine Ketones (NEG) MG/DL Urine Blood (NEG) Urine Nitrite (NEG) Ur Leukocyte Esterase (NEG) Urine RBC (0) /HPF Urine WBC (0-4) /HPF Ur Squamous Epith Cells /LPF Urine Bacteria /LPF Urine Mucus /LPF COVID-19 (DWIGHT) Negative (Negative) COVID-19 Clin Com See Note 10/14/21 10/14/21 10/14/21 Range/Units 13:42 13:42 16:39 WBC (4.8-10.8) X10*3/uL RBC (4.20-5.50) X10*6/uL Hgb (12.0-16.0) g/dl Hct (37.0-47.0) % MCV (80.0-98.0) fL MCH (27.0-33.0) pg MCHC (31.0-35.0) g/dl RDW (11.0-16.0) % Plt Count (160-400) X10*3/uL MPV (9.4-12.3) fL Immature Gran % (Auto) (0.0-0.4) % Neut % (Auto) (45-73) % Lymph % (Auto) (20-40) % Callahan % (Auto) (2-11) % Eos % (Auto) (0-4) % Baso % (Auto) (0-2) % Lymph # (Auto) (1.2-4.9) X10*3/uL [place]ahan # (Auto) (0.1-1.2) X10*3/uL Eos # (Auto) (0.0-0.4) X10*3/uL Baso # (Auto) (0.0-0.2) X10*3/uL Abs Immat Gran (auto) (0.00-0.03) X10*3/uL Absolute Neuts (auto) (2.0-8.3) x10*3/uL Absolute Nucleated RBC (0.0-0.012) X10*3/uL Nucleated RBC % (auto) (0.0-0.2) /100WBC Sodium 138 (135-145) mmol/L Potassium 4.2 D (3.3-5.1) mmol/L Chloride 101 (96-108) mmol/L Carbon Dioxide 30 H (22-29) mmol/L Anion Gap 11 L (12-20) BUN 12 (9-16) mg/dL Creatinine 0.76 (0.5-1.4) mg/dL Estim Creat Clear Calc 40.4 Estimated GFR > 60 Random Glucose 104 (60-115) mg/dL Lactic Acid (0.5-2.0) mmol/L Calcium 9.3 (8.4-10.2) mg/dL Magnesium 1.8 (1.6-2.6) mg/dL Total Bilirubin 0.5 (0.0-1.0) mg/dL Direct Bilirubin 0.3 (0.0-0.5) mg/dL AST 21 (5-31) U/L ALT 22 (0-31) U/L Alkaline Phosphatase 91 (39-117) U/L Troponin I High Sens 12.8 (<3.5-17.0) ng/L Total Protein 7.1 (6.5-8.0) g/dL Albumin 4.1 (3.5-5.0) g/dL Lipase 37 (8-78) U/L Urine Color YELLOW Urine Appearance CLOUDY Urine pH 6.0 (5.0-8.0) Ur Specific [place] 1.015 (1.005-1.025) Urine Protein 1+ H (NEG-TRACE) MG/DL Urine Glucose (UA) NEG (NEG) MG/DL Urine Ketones NEG (NEG) MG/DL Urine Blood TRACE (NEG) Urine Nitrite NEG (NEG) Ur Leukocyte Esterase 2+ H (NEG) Urine RBC 1-4 (0) /HPF Urine WBC 30-49 H (0-4) /HPF Ur Squamous Epith Cells TRACE /LPF Urine Bacteria 3+ /LPF Urine Mucus TRACE /LPF COVID-19 (DWIGHT) (Negative) COVID-19 Clin Com Imaging Data Hip Xray : Attestation: I personally reviewed and interpreted this imaging study as follows: Radiologist's impression: XR/XR hip RT min 2V IMPRESSION: Pelvis and right hip radiographs; *No acute abnormalities identified. *Diffuse osteopenia. *Mild osteoarthritis of the right hip. *Partially visualized left hip arthroplasty. ? CTA and CT of abdomen. : Attestation: I personally reviewed and interpreted this imaging study as follows: Radiologist's impression: CT/CT chest wo con IMPRESSION: ? 1. CT chest. Emphysematous changes of lung. Irregular nodule in the right lung apex measuring 1.3 x 1 x 1 cm. This is suspicious. Various management parameters for solitary pulmonary nodules are in the literature. According to the UPDATED 2017 Fleischner Society recommendations, the advised follow-up imaging for a single solid nodule measuring 8 mm or greater is:? Consider CT, PET/CT, or tissue sampling. ? Reference: Guidelines for Management of Incidental Pulmonary Nodules Detected on CT Images: From the Fleischner Society 2017. ? 2. No acute abnormality the abdomen or the pelvis. Atrophic right kidney. Normal appendix. Chronic dilatation of the CBD and pancreatic duct without evidence of edema around pancreas or right upper quadrant. Discharge Plan Discharge Clinical Impression: Hip pain, Lung nodule Abdominal pain Qualifiers: Abdominal location: right upper quadrant Qualified Code(s): R10.11 - Right upper quadrant pain Patient Disposition: Home, Self-Care Instructions: Abdominal Pain (ED), Pulmonary Nodules (ED), Hip Pain (ED) Additional Instructions: Take your medications as prescribed. Follow-up with your primary care provider this week. This CT of your chest shows a long nodule, this requires follow-up imaging or tissue sampling. Please follow-up with your primary care provider to discuss this finding. Return to the emergency department with new or worsening symptoms. In case of emergency call 911 Prescriptions: No Action acetazolamide 500 mg capsule, extended release 1 cap PO BID RF: 0 melatonin 10 mg capsule 1 cap PO BEDTIME RF: 0 memantine 7 mg capsule,sprinkle,ER 24hr 1 cap PO DAILY RF: 0 quetiapine 25 mg tablet 1 tab PO BEDTIME RF: 0 dorzolamide 2 % drops 1 drp BID RF: 0 Combigan 0.2-0.5 % drops 1 drp BID RF: 0 Lumigan 0.01 % drops 1 drp ophthalmic-Left BEDTIME RF: 0 potassium chloride [Klor-Con M20] 20 mEq tablet,ER particles/crystals 40 meq PO ONCE Qty: 2 RF: 0 Referrals: Monik Gibson MD [Primary Care Provider] - 2 days
[2021-10-14 16:39] VITALS: BP 127/75; PULSE 69; RESP 11; TEMP 37; O2SAT 95
[2021-10-14 16:52] LABS: Appearance Urine CLOUDY; Color Urine YELLOW; Glucose Urine UA NEG (NEG); Leukocyte Esterase Urine 2+ (NEG); Nitrite Urine NEG (NEG); Specific Gravity - Urine 1.015 (1.005-1.025); UACC Culture Trigger YES; Urine Blood TRACE (NEG); Urine Ketones NEG (NEG); Urine Protein 1+ MG/DL (NEG-TRACE)
[2021-10-14 17:06] LABS: WBC Urine 30-49 /HPF (0-4)
[2021-10-14 17:07] LABS: Bacteria Urine 3+ /LPF; Mucus Urine TRACE /LPF; Squamous Epithelial Cell Urine TRACE /LPF
== END 2021-10-14 18:58 | disposition home or self-care (01) ==
PROVIDERS: Emergency Provider Emergency Medicine; PCP Internal Medicine
DX: N39.0 Urinary tract infection, site not specified (principal); R10.11 Right upper quadrant pain; Z20.822 Contact with and (suspected) exposure to COVID-19; F03.90 Unspecified dementia, unspecified severity, without behavioral disturbance, psychotic disturbance, mood disturbance, and anxiety
CPT/HCPCS: 36415; 51701; 71250; 73502; 74176; 80048; 80076; 81001; 83605; 83690; 83735; 84484; 85025; 87040; 87086; 87088; 87186; 87635; 93005; 96361; 96374; 96375; 99285; J2270; J2405

== ENCOUNTER → 2023-01-10 15:28 | Outpatient (BNVA) | payer OTHER, SELFPAY | PROVIDERS: PCP Internal Medicine; Visit Provider Nurse Practitioner Family | DX: F03.90 Unspecified dementia, unspecified severity, without behavioral disturbance, psychotic disturbance, mood disturbance, and anxiety (principal) | CPT/HCPCS: Q3014 ==